=== PATIENT | female | born 1960 | race Caucasian/White ===

== ENCOUNTER 2016-11-08 11:59 | Emergency (ER) | payer OTHER ==
[~2016-11-08] VITALS: Ht 167.6 cm; Wt 82.9 kg
[~2016-11-08 11:59] MED LIST: ACCUPRIL40 MG PO; ALBUTEROL SULF8.5 GM IH; AMITRIPTYLINE H10 MG PO; ATIVAN1 MG PO; CALCIUM + VITA1 EACH PO; Ecotrin PO; Feosol PO; GI COCKTAIL PO; Levothroid,Synthroid PO; MACROBID100 MG PO; NEXIUM40 MG PO; PAXIL CR25 MG PO; PYRIDIUM200 MG PO; REQUIP1 MG PO; Relafen PO; Requip PO; SINGULAIR10 MG PO; ZYRTEC10 M2 PO
[2016-11-08 13:06] LABS: HEMATOCRIT 46.4 % (36.0-46.0); MCH 30.9 PG (29.0-34.0); MCHC 33.6 G/DL (30.0-36.0); MCV 91.9 FL (83-99); MEAN PLAT.VOLUME 11.5 uM^3 (9.5-12.4); PLATELET COUNT 240 K/uL (156-360); RBC DIS.WIDTH-CV 14.3 % (11.8-14.6); RBC DIS.WIDTH-SD 46.4 % (39-53)
[2016-11-08 13:09] LABS: RED BLOOD COUNT 5.05 M/uL (3.80-5.20)
[2016-11-08 13:49] LABS: ADD MIUA? YES; BILIRUBIN NEGATIVE; BLOOD NEGATIVE; COLOR YELLOW ((YELLOW)); GLUCOSE (STRIP) NEGATIVE; KETONES NEGATIVE; LEUKOCYTES NEGATIVE; NITRITE NEGATIVE; PROTEIN (STRIP) NEGATIVE; SPECIFIC GRAVITY 1.011 (1.000-1.030)
[2016-11-08 13:59] LABS: BACTERIA RARE /HPF; EPITHELIAL CELLS RARE /HPF; MUCUS TRACE /LPF; RED BLOOD CELLS 0-5 /HPF (0-5); UCUL ADDED? NO; WHITE BLOOD CELLS 0-5 /HPF (0-5)
[2016-11-08 14:21] LABS: CHLORIDE 105 mEq/L (99-109); POTASSIUM 3.9 mEq/L (3.7-5.4); SODIUM 141 mEq/L (136-147)
[2016-11-08 14:23] LABS: GLUCOSE 116 mg/dL (70-99)
[2016-11-08 14:24] LABS: ANION GAP 8 MEQ/L (2-14)
[2016-11-08 14:27] LABS: ALKALINE PHOSPHATASE 87 IU/L (3-129); GFR ESTIMATE (CALCULATED) > 59 mL/min/
[2016-11-08 14:28] LABS: UREA NITROGEN (BUN) 17 mg/dL (9-23)
[2016-11-08 14:30] LABS: LIPASE 17 U/L (1.0-51.0)
[2016-11-08] MEDS ORDERED: ATORVASTATIN CA20 MG PO (16:59)
[2016-11-08] MEDS ORDERED: HYDROCHLOROTH12.5 M3 PO (17:00)
[2016-11-08 17:34] VITALS: BP 134/78
[2016-11-09] MEDS ORDERED: PAXIL CR37.5 MG PO (19:28)
[2016-11-09] MEDS ORDERED: ELAVIL25 MG PO (19:28)
== END 2016-11-08 17:35 | disposition home or self-care (01) ==
LOC: EME 11:59
PROVIDERS: Emergency Medicine
DX: R10.30 Lower abdominal pain, unspecified (principal); J45.909 Unspecified asthma, uncomplicated; I10 Essential (primary) hypertension; K21.9 Gastro-esophageal reflux disease without esophagitis; Z88.1 Allergy status to other antibiotic agents; Z91.048 Other nonmedicinal substance allergy status; Z88.0 Allergy status to penicillin; Z88.8 Allergy status to other drugs, medicaments and biological substances
CPT/HCPCS: 74177; 80053; 81003; 83690; 85027; 99281; 99284; J2270; J2405; J7030

== ENCOUNTER 2016-11-09 15:42 | Observation (INO) | payer OTHER ==
[~2016-11-09] VITALS: Ht 167.6 cm; Wt 82.3 kg
[~2016-11-09 15:42] MED LIST changes: +ATORVASTATIN CA20 MG PO; +HYDROCHLOROTH12.5 M3 PO
[2016-11-09 16:35] LABS: HEMATOCRIT 43.4 % (36.0-46.0); MCH 30.4 PG (29.0-34.0); MCHC 32.9 G/DL (30.0-36.0); MCV 92.3 FL (83-99); MEAN PLAT.VOLUME 10.9 uM^3 (9.5-12.4); PLATELET COUNT 239 K/uL (156-360); RBC DIS.WIDTH-SD 45.7 % (39-53); WHITE BLOOD COUNT 13.2 K/uL (4.1-10.2)
[2016-11-09 16:47] LABS: CHLORIDE 103 mEq/L (99-109); POTASSIUM 3.2 mEq/L (3.7-5.4); SODIUM 140 mEq/L (136-147)
[2016-11-09 16:49] LABS: GLUCOSE 151 mg/dL (70-99)
[2016-11-09 16:50] LABS: ANION GAP 10 MEQ/L (2-14)
[2016-11-09 16:51] LABS: TOTAL BILIRUBIN 1.2 mg/dL (0.0-1.0)
[2016-11-09 16:53] LABS: ALKALINE PHOSPHATASE 96 IU/L (3-129); GFR ESTIMATE (CALCULATED) > 59 mL/min/
[2016-11-09 16:54] LABS: UREA NITROGEN (BUN) 17 mg/dL (9-23)
[2016-11-09 16:56] LABS: LIPASE 23 U/L (1.0-51.0)
[2016-11-09] MEDS ORDERED: PAXIL CR37.5 MG PO (19:28)
[2016-11-09] MEDS ORDERED: ELAVIL25 MG PO (19:28)
[2016-11-09 22:37] VITALS: BP 102/54
[2016-11-10] VITALS: BP 109/56
[2016-11-10 05:18] VITALS: BP 101/49
[2016-11-10 07:23] LABS: EOSINOPHIL (%) 2.2 % (0-5); EOSINOPHIL COUNT 0.2 K/uL (0-0.3); HEMATOCRIT 37.6 % (36.0-46.0); IMMATURE GRANULOCYTE (%) 0.4 % (0.0-0.7); MCH 31.3 PG (29.0-34.0); MCHC 32.7 G/DL (30.0-36.0); MCV 95.7 FL (83-99); MEAN PLAT.VOLUME 11.2 uM^3 (9.5-12.4); MONOCYTE COUNT 0.7 K/uL (0-0.8); NEUTROPHIL (%) 53.3 % (45-76); NEUTROPHIL COUNT 4.5 K/uL (1.8-6.4); PLATELET COUNT 207 K/uL (156-360); RBC DIS.WIDTH-CV 14.2 % (11.8-14.6); RBC DIS.WIDTH-SD 49.6 % (39-53); RED BLOOD COUNT 3.93 M/uL (3.80-5.20)
[2016-11-10 07:29] LABS: WHITE BLOOD COUNT 8.5 K/uL (4.1-10.2)
[2016-11-10 07:30] LABS: ALKALINE PHOSPHATASE 77 IU/L (3-129); ANION GAP 4 MEQ/L (2-14); CHLORIDE 105 MEQ/L (99-109); GFR ESTIMATE (CALCULATED) > 59 mL/min/; SAMPLE HEMOLYSIS CHECK 0; SAMPLE ICTERIC CHECK 0; SAMPLE LIPEMIA CHECK 0; SODIUM 139 MEQ/L (136-147); UREA NITROGEN (BUN) 14 mg/dL (9-23)
[2016-11-10 07:32] LABS: GLUCOSE 94 mg/dL (70-99); POTASSIUM 4.3 MEQ/L (3.7-5.4)
[2016-11-10 08:00] VITALS: BP 109/53
[2016-11-10 11:55] VITALS: BP 113/51
[2016-11-10 16:22] VITALS: BP 101/47
[2016-11-11 00:04] VITALS: BP 95/42
[2016-11-11 04:31] VITALS: BP 95/44
[2016-11-11 08:06] VITALS: BP 103/51
[2016-11-11 11:16] VITALS: BP 120/57
== END 2016-11-11 12:06 | disposition home or self-care (01) ==
LOC: EME 15:42 → EDOF 19:27 → 5WEST 19:27
PROVIDERS: Physician Assistant
DX: R10.31 Right lower quadrant pain (principal); R10.32 Left lower quadrant pain; Z86.19 Personal history of other infectious and parasitic diseases; R19.7 Diarrhea, unspecified; I10 Essential (primary) hypertension; E78.5 Hyperlipidemia, unspecified; E66.9 Obesity, unspecified; Z68.29 Body mass index [BMI] 29.0-29.9, adult; Z86.73 Personal history of transient ischemic attack (TIA), and cerebral infarction without residual deficits; Z82.49 Family history of ischemic heart disease and other diseases of the circulatory system; Z88.0 Allergy status to penicillin; Z88.1 Allergy status to other antibiotic agents; Z88.8 Allergy status to other drugs, medicaments and biological substances; Z91.09 Other allergy status, other than to drugs and biological substances
CPT/HCPCS: 76856; 80053; 81003; 83605; 83690; 85025; 85027; 87493; 87506; G0378; J2270; J2405; J3010; J7030

== ENCOUNTER → 2016-11-19 | Outpatient (CLI) | payer OTHER ==
[~2016-11-19] MED LIST changes: +ELAVIL25 MG PO; +PAXIL CR37.5 MG PO
== END | disposition home or self-care (01) ==
LOC: CDC 15:01
DX: I49.9 Cardiac arrhythmia, unspecified (principal); N83.291 Other ovarian cyst, right side; R10.2 Pelvic and perineal pain
CPT/HCPCS: 93000

== ENCOUNTER 2016-11-27 05:43 | Day surgery (SDC) | payer OTHER ==
[~2016-11-27] VITALS: Ht 167.6 cm; Wt 83.0 kg
[2016-11-27 06:17] VITALS: BP 107/60
[2016-11-27 10:55] VITALS: BP 112/57
[2016-11-27 11:05] VITALS: BP 120/69
[2016-11-27 12:02] VITALS: BP 125/59
[2016-11-27 12:41] VITALS: BP 114/56
== END 2016-11-27 12:40 | disposition home or self-care (01) ==
LOC: SDC 05:43
DX: R10.2 Pelvic and perineal pain (principal); N83.291 Other ovarian cyst, right side; N83.292 Other ovarian cyst, left side; N73.6 Female pelvic peritoneal adhesions (postinfective); K66.0 Peritoneal adhesions (postprocedural) (postinfection); Z78.0 Asymptomatic menopausal state; Z90.710 Acquired absence of both cervix and uterus; J45.909 Unspecified asthma, uncomplicated; K21.9 Gastro-esophageal reflux disease without esophagitis; E78.5 Hyperlipidemia, unspecified; I10 Essential (primary) hypertension; E03.9 Hypothyroidism, unspecified; Z82.49 Family history of ischemic heart disease and other diseases of the circulatory system; Z80.8 Family history of malignant neoplasm of other organs or systems; Z82.5 Family history of asthma and other chronic lower respiratory diseases; Z84.1 Family history of disorders of kidney and ureter; Z80.0 Family history of malignant neoplasm of digestive organs; Z88.8 Allergy status to other drugs, medicaments and biological substances; Z88.0 Allergy status to penicillin; Z88.1 Allergy status to other antibiotic agents
CPT/HCPCS: 88305; J0131; J0330; J1885; J2250; J2405; J3010; S0020

== ENCOUNTER 2017-04-10 14:41 | Emergency (ER) | payer OTHER ==
[~2017-04-10] VITALS: Ht 167.6 cm; Wt 90.7 kg
[2017-04-10] MEDS ORDERED: MOTRIN600 MG PO (16:23)
[2017-04-10] MEDS ORDERED: FLEXERIL10 MG PO (16:23)
[2017-04-10 17:00] VITALS: BP 150/80
[2017-04-10 17:18] LABS: THC CANNABINOIDS NEGATIVE (50 ng/mL)
[2017-04-10 17:19] LABS: ADD MEDTOX COMMENT Y; AMPHETAMINE NEGATIVE (500 ng/mL); BARBITURATES NEGATIVE (200 ng/mL); BENZODIAZEPINES PRESUMPTIVE POSITIVE (150 ng/mL); COCAINE NEGATIVE (150 ng/mL); INTERNAL CONTROLS VALID? YES; METHADONE NEGATIVE (200 ng/mL); METHAMPHETAMINE NEGATIVE (500 ng/mL); OPIATES (MORPHINE) NEGATIVE (100 ng/mL); OXYCODONE NEGATIVE (100 ng/mL); PHENCYCLIDINE NEGATIVE (25 ng/mL); PROPOXYPHENE NEGATIVE (300 ng/mL); TRICYCLIC ANTIDEPRESSANTS PRESUMPTIVE POSITIVE (300 ng/mL)
[2017-04-10 18:00] LABS: BENZODIAZEPINES QUANT VALUE 0 NG/ML; BENZODIAZEPINES, URINE SCREEN Negative (200 ng/mL)
== END 2017-04-10 17:02 | disposition home or self-care (01) ==
LOC: EME 14:41
PROVIDERS: Nurse Practitioner Family
DX: S46.912A Strain of unspecified muscle, fascia and tendon at shoulder and upper arm level, left arm, initial encounter (principal); W23.0XXA Caught, crushed, jammed, or pinched between moving objects, initial encounter; Y93.89 Activity, other specified; Y99.0 Civilian activity done for income or pay; Z86.73 Personal history of transient ischemic attack (TIA), and cerebral infarction without residual deficits
CPT/HCPCS: 73060; 73090; 84999; 99281; 99284; G0480

== ENCOUNTER 2018-02-27 18:01 | Emergency (ER) | payer OTHER ==
[~2018-02-27] VITALS: Ht 167.6 cm; Wt 91.1 kg
[~2018-02-27 18:01] MED LIST changes: +FLEXERIL10 MG PO; +MOTRIN600 MG PO
[2018-02-27 19:27] LABS: HEMATOCRIT 33.9 % (36.0-46.0); HEMOGLOBIN 11.4 G/DL (11.9-15.5); MCH 31.5 PG (29.0-34.0); MCHC 33.6 G/DL (30.0-36.0); MCV 93.6 FL (83-99); PLATELET COUNT 198 K/uL (156-360); RBC DIS.WIDTH-CV 13.2 % (11.8-14.6); RBC DIS.WIDTH-SD 45.3 % (39-53); RED BLOOD COUNT 3.62 M/uL (3.80-5.20); WHITE BLOOD COUNT 7.2 K/uL (4.1-10.2)
[2018-02-27 19:34] LABS: CHLORIDE 104 mEq/L (99-109); POTASSIUM 3.3 mEq/L (3.7-5.4); SODIUM 143 mEq/L (136-147)
[2018-02-27 19:36] LABS: GLUCOSE 86 mg/dL (70-99)
[2018-02-27 19:40] LABS: CREATININE 0.8 mg/dL (0.6-1.3); GFR ESTIMATE (CALCULATED) > 59 mL/min/; UREA NITROGEN (BUN) 12 mg/dL (9-23)
[2018-02-27] MEDS ORDERED: PROCTOFOAM-HC10 GM PR (20:16)
[2018-02-27 20:34] VITALS: BP 131/64
== END 2018-02-27 20:36 | disposition home or self-care (01) ==
LOC: EME 18:01
PROVIDERS: Physician Assistant
DX: K92.1 Melena (principal); S30.23XA Contusion of vagina and vulva, initial encounter; E87.6 Hypokalemia; Y93.18 Activity, surfing, windsurfing and boogie boarding; Y92.831 Amusement park as the place of occurrence of the external cause; G43.909 Migraine, unspecified, not intractable, without status migrainosus; J30.2 Other seasonal allergic rhinitis; Z86.73 Personal history of transient ischemic attack (TIA), and cerebral infarction without residual deficits; Z90.710 Acquired absence of both cervix and uterus; Z88.0 Allergy status to penicillin; Z88.1 Allergy status to other antibiotic agents; Z88.8 Allergy status to other drugs, medicaments and biological substances; Z91.09 Other allergy status, other than to drugs and biological substances
CPT/HCPCS: 80048; 85027; 99281; 99284